=== PATIENT | male | born 1965 | race Caucasian/White ===

== ENCOUNTER → 2016-11-24 | Outpatient (CLI) | payer BC ==
[~2016-11-24] MED LIST: FIORICET 50-321 EACH PO; FLONASE16 GM; IBUPROFEN800 MG PO; KEFLEX PO; LORTAB 5/500 TA1 TA2 PO
--- NOTE | ~2016-11-24 | EKG ---
PATIENT: SAMSON BRIZUELA UNIT #: [id number] Ventricular Rate: 66 BPM Atrial Rate: 66 BPM P-R Interval: 100 ms QRS Duration: 90 ms Q-T Interval: 394 ms QTC Calculation(Bezet): 413 ms P [place]: 38 degrees Calculated R [place]: 28 degrees Calculated T [place]: 52 degrees Diagnosis Line: Sinus rhythm with short CA Diagnosis Line: Otherwise normal ECG Diagnosis Line: Diagnosis Line: Confirmed by ANDRE ANGELES MD ([id number]) on Diagnosis Line: 11/25/2016 7:31:11 AM INTERPRETING MD: BRIDGETTE BAHENA
[2016-11-24 14:09] LABS: HEMATOCRIT 49.8 % (38.0-50.0); HEMOGLOBIN 16.9 gm/dL (13.0-16.0); MEAN CORPUSCULAR HEMOGLOBIN 30.6 PG (28-34); MEAN PLATELET VOLUME 8.5 FL (6.5-11.5); RED BLOOD COUNT 5.53 X10e (3.90-5.60); WHITE BLOOD COUNT 8.7 X10e3 (4.0-10.5)
[2016-11-24 14:19] LABS: BUN/CREATININE RATIO 15.55; CALCIUM SERUM 9.6 mg/dL (8.4-10.2); CREATININE SERUM 0.9 mg/dL (0.6-1.4); GLOM FILT RATE Estimated 98.5 mL/min (>60); POTASSIUM 4.7 mmol/L (3.5-5.1)
== END | disposition home or self-care (01) ==
LOC: SEKG 13:42 → SLAB 13:42
PROVIDERS: Orthopaedic Surgery
DX: Z01.818 Encounter for other preprocedural examination (principal); M75.102 Unspecified rotator cuff tear or rupture of left shoulder, not specified as traumatic
CPT/HCPCS: 36415; 80048; 85027; 93005